=== PATIENT | female | born 1950 | race Caucasian/White ===

== ENCOUNTER 2024-01-03 04:07 | Emergency (ER) | payer MEDICARE, OTHER, SELFPAY ==
[2024-01-03 04:09] VITALS: BP 216/118
[2024-01-03 04:52] VITALS: BMI 31.5
[2024-01-03 05:00] VITALS: BP 131/69
[2024-01-03 05:30] VITALS: BP 108/61
--- NOTE | 2024-01-03 05:50 | ED.GENMED ---
History of Present Illness
General
Chief Complaint: Blood Pressure Problem
Source: patient
Exam Limitations: none
Time Seen by Provider: 01/03/24 05:50
History of Present Illness
History of Present Illness:
73-year-old female primarily here for hypertension. Diastolics were in the 1 10-1 15 range overnight. She took an extra 0.1 clonidine in the middle of the night. She currently has no symptoms. She awoke with some vague headache and heart
palpitations or pounding. No syncope no chest pain no shortness of breath no acute neurologic symptoms. Blood pressure has been an ongoing issue for a long time. She is followed by cardiology and nephrology at [facility]. She had a
pacemaker placed August 2022. There apparently was some lead issue that had to be revised at that time.
Past History
Past History
ED Past Medical History: HTN (takes Amlodipine)
ED Past Surgical History: Cardiac (Pacemaker) and Orthopedic
Social History
Personal: Single
Living: alone
Employment: Employed
Review of Systems
Review of Systems
All Other Systems: Not applicable
Respiratory: Reports no symptoms
Cardiac: Denies chest pain or syncope
Neurological: Denies dizzy, weakness or numbness
Phy Exam
Physical Exam
Physical Exam:
GENERAL: Alert and oriented in no apparent distress
EYE: Orbits normal.
NECK: Supple, no thyroid palpable
ENT: Pharynx without erythema
CARDIAC: Regular rate and rhythm without any obvious murmurs. Pacemaker left upper chest wall
LUNGS: Clear breath sounds,normal
ABDOMEN: Soft, without focal tenderness or distention
NEUROLOGICAL: Alert and oriented , grossly non-focal
SKIN: Warm and dry, no rash or lesion, no discoloration, skin intact.
MUSCULOSKELETAL: No edema,no deformity.Good color
PSYCH: Normal and appropriate interaction.
Course
Orders/Labs/Results
Orders:
Orders
01/03/24 04:21
Electrocardiogram (*1) Urgent
Reason for Study: Vertigo / Dizzy
EKG- Treatment ONCE
01/03/24 06:28
Basic Metabolic Panel Urgent
Complete Blood Count/With Diff Urgent
Abnormal Lab Results
01/03/24
06:28
MCH 32.3 H pg
(27.0-31.0)
MPV 11.0 H fL
(7.4-10.4)
Absolute Monos (auto) 0.8 H 10^3/uL
(0.1-0.6)
Lymphocytes % 15.0 L %
(20.5-51.1)
Chloride 108 H mmol/L
(98-107)
BUN 19 H mg/dl
(7-17)
Glucose 111 H mg/dl
(70-99)
01/03/24 06:28
01/03/24 06:28
Vital Signs
Initial and Last Documented VS:
Initial Vital Signs
Temp Pulse Resp BP Pulse Ox
98.1 F 92 24 216/118 98
01/03/24 04:09 01/03/24 04:09 01/03/24 04:09 01/03/24 04:09 01/03/24 04:09
Last Documented Vital Signs
Temp Pulse Resp BP Pulse Ox
98.1 F 84 20 119/65 94
01/03/24 04:09 01/03/24 06:00 01/03/24 06:00 01/03/24 07:00 01/03/24 07:01
MDM/Problems Addressed
Differential Diagnosis Includes:
Patient's blood pressures have been stable here. No indication for emergent blood pressure management. Cardiac exam and neurologic exam are within normal limits. EKG is stable. Paced. She is not describing a pacemaker issue. We will however
interrogate the pacemaker. Check basic labs for kidney function. If all stable at close outpatient follow-up. Would not make emergent changes to her blood pressure regimen at this time
*Pulse Oximetry
Patient hypoxic: no
*EKG
Interpreted by ED Provider?: Yes
Interpretation: abnormal
Comparison EKG: changes noted
Heart Rate: 70
Rate: normal
Rhythm: other
Worden: normal axis
Interval: normal interval
QRS Pattern: normal QRS
Ischemia: non-specific ST changes
*Critical Care Note
Total Time (30-74mins, 75-104mins- exclusive of procedures): Not Applicable
Update Note
Update Note:
Pacemaker interrogation within normal limits. Patient's blood pressure remained very stable. Asymptomatic. Discharged to follow-up
ED Attending Note
-
Portions of this chart may have been created with voice recognition software.� Occasional wrong word or��sound alike� substitutions may have occurred due to the inherent limitations of voice recognition software.
Discharge Plan
Departure
Patient Disposition: Home (Routine Discharge)
Date of Disposition: 01/03/24
Time of Disposition: 07:19
Patient with high blood pressure during this ER visit?: No
Discharge Problem:
Elevated blood pressure, Vague headache, Labile hypertension
Instructions: BLOOD PRESSURE
Prescriptions:
No Action
mupirocin 2 % Ointment
1 applic TOPICAL BID
aspirin 325 mg Tablet
325 mg PO DAILY Qty: 28 0RF
Rx Instructions:
Take daily x4 weeks for blood clot prevention.
lidocaine [Aspercreme (lidocaine)] 4 % Adhesive Patch,Medicated
2 patch topical DAILY Qty: 10 0RF
Rx Instructions:
Over the counter. Remove nightly.
Apply to sides of left knee. DO NOT place over incision.
docusate sodium 100 mg Capsule
100 mg PO BID Qty: 30 0RF
sennosides [senna] 8.6 mg Tablet
17.2 mg PO BID Qty: 30 0RF
acetaminophen [Acetaminophen Extra Strength] 500 mg tablet
1,000 mg PO Q6H Qty: 30 0RF
Rx Instructions:
DO NOT exceed >4000 mg daily
prednisone 10 mg tablet
30 mg PO TAPER Qty: 12 0RF
Rx Instructions:
3 tabs (30mg) x2 days, 2 tabs (20mg) x2 days, 1 tab (10mg) x2 days, then stop
oxycodone 5 mg tablet
5 mg PO Q6H PRN (Reason: moderate-severe pain) Qty: 30 0RF
Rx Instructions:
1 tab for moderate pain, 2 if severe.
Dx total joint. Ongoing therapy.
amlodipine 5 mg Tablet
5 mg PO HS Qty: 1 0RF
Rx Instructions:
Hold if systolic blood pressure <130 while on Oxycodone.
ibuprofen [Advil] 200 mg tablet
400 mg PO BID Qty: 30 0RF
Patient Comments:
patient last took about one month ago
Rx Instructions:
DO NOT restart until off Prednisone.
Take with food. Do not take within 2 hours of Aspirin.
pregabalin [Lyrica] 75 mg capsule
75 mg PO BID Qty: 15 0RF
Rx Instructions:
Take twice a day x5 days, then once daily x5 days, then STOP.
Referrals:
Russell Arora MD [Family Provider] - Tomorrow
Lionel Hickman MD [Active] - Next open appointment
Activity Restrictions/Additional Instructions:
Call your engine turner and spanish moss picker tomorrow for follow-up
Return with any unusual headache chest pain shortness of breath or any other concerning symptoms related to your blood pressure
Interventions
Interventions:
*Risk Screen - Suicide Last Done: 01/03/24 04:09
*General Assessment Last Done: 01/03/24 05:46
*Neglect/Abuse Screening Last Done: 01/03/24 04:09
ED- Fall Risk Assessment Last Done: 01/03/24 04:55
*ED COVID-19 Vaccine History Last Done: 01/03/24 05:46
ED- Cardiac Assessment Last Done: 01/03/24 04:55
ED- Neurological Assessment Last Done: 01/03/24 04:55
ED- Pulmonary Assessment Last Done: 01/03/24 04:55
Discharge Date and Time
Print Language: NEPALI
[2024-01-03 06:00] VITALS: BP 135/81
[2024-01-03 06:31] VITALS: BP 146/74
[2024-01-03 06:36] LABS: % Basophils 0.6 % (0-2); % Eosinophils 3.5 % (0-6); % Immature Granulocytes 0.2 % (0-0.5); % Monocytes 9.3 % (1.7-9.3); % Neutrophils 71.4 % (42.2-75.2); Absolute Basophils 0.1 10^3/uL (0-0.2); Absolute Eosinophils 0.3 10^3/uL (0-0.7); Absolute Lymphocytes 1.3 10^3/uL (1.2-3.4); Absolute Monocytes 0.8 10^3/uL (0.1-0.6); Hematocrit 41.6 % (37.0-47.0); Hemoglobin 14.2 g/dL (12.0-16.0); Mean Corp Hgb Conc. 34.1 g/dL (33.0-37.0); Mean Corpuscular Hgb 32.3 pg (27.0-31.0); Mean Corpuscular Volume 94.8 fL (81.0-99.0); Nucleated Red Blood Cells % 0 %; Platelet Count 194 10^3/uL (130-400); Red Blood Cell Count 4.39 10^6/uL (4.20-5.40); Red Cell Dist. Width 13.3 % (11.5-14.5); White Blood Cell Count 8.5 10^3/uL (4.8-10.8)
[2024-01-03 06:50] LABS: Blood Urea Nitrogen 19 mg/dl (7-17); Calcium 9.7 mg/dl (8.4-10.2); Carbon Dioxide 22 mmol/L (22-30); Chloride 108 mmol/L (98-107); Estimated Creatinine Clearance 84 ml/min; Glucose 111 mg/dl (70-99); Potassium 3.8 mmol/L (3.5-5.1); Sodium 143 mmol/L (135-145); eGFR > 60.00
[2024-01-03 07:00] VITALS: BP 119/65
== END 2024-01-03 07:33 | disposition home or self-care (01) ==
LOC: EMR 04:07
PROVIDERS: EMERGENCY PHYSICIAN Emergency Medicine; FAMILY PHYSICIAN Family Medicine
DX: R51.9 Headache, unspecified (principal); I10 Essential (primary) hypertension; Z95.0 Presence of cardiac pacemaker
CPT/HCPCS: 99284; 93288; 80048; 85025; 93005

== ENCOUNTER 2024-05-24 15:08 | Outpatient (RCR) | payer MEDICARE, OTHER, SELFPAY | END 2024-05-24 23:59 | disposition home or self-care (01) | LOC: RPT 15:08 | PROVIDERS: ATTENDING PHYSICIAN Family Medicine | DX: N81.2 Incomplete uterovaginal prolapse (principal); N32.81 Overactive bladder; N39.41 Urge incontinence; Z73.6 Limitation of activities due to disability | CPT/HCPCS: 97110; 97161; 97530 ==

== ENCOUNTER 2024-06-22 13:13 | Outpatient (RCR) | payer MEDICARE, OTHER, SELFPAY | END 2024-06-22 23:59 | disposition home or self-care (01) | LOC: RPT 13:13 | PROVIDERS: ATTENDING PHYSICIAN Family Medicine | DX: N81.2 Incomplete uterovaginal prolapse (principal); N32.81 Overactive bladder; N39.41 Urge incontinence; Z73.6 Limitation of activities due to disability | CPT/HCPCS: 97110; 97112; 97530 ==

== ENCOUNTER 2024-07-14 15:00 | Outpatient (RCR) | payer MEDICARE, OTHER, SELFPAY | END 2024-07-14 23:59 | disposition home or self-care (01) | LOC: RPT 15:00 | PROVIDERS: ATTENDING PHYSICIAN Family Medicine | DX: N81.2 Incomplete uterovaginal prolapse (principal); N32.81 Overactive bladder; N39.41 Urge incontinence; Z73.6 Limitation of activities due to disability | CPT/HCPCS: 97110; 97112; 97530 ==

== ENCOUNTER 2024-07-26 15:05 | Outpatient (RCR) | payer MEDICARE, OTHER, SELFPAY | END 2024-07-26 23:59 | disposition home or self-care (01) | LOC: RPT 15:05 | PROVIDERS: ATTENDING PHYSICIAN Internal Medicine Clinical Cardiac Electrophysiology; FAMILY PHYSICIAN Family Medicine | DX: M25.512 Pain in left shoulder (principal); M54.2 Cervicalgia; Z73.6 Limitation of activities due to disability | CPT/HCPCS: 97010; 97110; 97112; 97140; 97162 ==

== ENCOUNTER 2024-08-02 13:02 | Outpatient (RCR) | payer MEDICARE, OTHER, SELFPAY | END 2024-08-02 23:59 | disposition home or self-care (01) | LOC: RPT 13:02 | PROVIDERS: ATTENDING PHYSICIAN Internal Medicine Clinical Cardiac Electrophysiology; FAMILY PHYSICIAN Family Medicine | DX: M25.512 Pain in left shoulder (principal); M54.2 Cervicalgia; Z73.6 Limitation of activities due to disability | CPT/HCPCS: 97010; 97110; 97140 ==

== ENCOUNTER 2024-08-26 14:21 | Outpatient (RCR) | payer MEDICARE, OTHER, SELFPAY | END 2024-08-26 23:59 | disposition home or self-care (01) | LOC: RPT 14:21 | PROVIDERS: ATTENDING PHYSICIAN Family Medicine | DX: N81.2 Incomplete uterovaginal prolapse (principal); M25.512 Pain in left shoulder (principal); N32.81 Overactive bladder; M54.2 Cervicalgia; N39.41 Urge incontinence; R20.2 Paresthesia of skin; Z73.6 Limitation of activities due to disability | CPT/HCPCS: 97110; 97112 ==

== ENCOUNTER 2024-09-07 14:10 | Outpatient (RCR) | payer MEDICARE, OTHER, SELFPAY | END 2024-09-07 23:59 | disposition home or self-care (01) | LOC: RPT 14:10 | PROVIDERS: ATTENDING PHYSICIAN Internal Medicine Clinical Cardiac Electrophysiology; FAMILY PHYSICIAN Family Medicine | DX: M25.512 Pain in left shoulder (principal); M54.2 Cervicalgia; Z73.6 Limitation of activities due to disability | CPT/HCPCS: 97010; 97110 ==

== ENCOUNTER 2024-09-20 15:01 | Outpatient (RCR) | payer MEDICARE, OTHER, SELFPAY | END 2024-09-20 23:59 | disposition home or self-care (01) | LOC: RPT 15:01 | PROVIDERS: ATTENDING PHYSICIAN Family Medicine | DX: N81.2 Incomplete uterovaginal prolapse (principal); N32.81 Overactive bladder; N39.41 Urge incontinence; Z73.6 Limitation of activities due to disability; M25.512 Pain in left shoulder; M54.2 Cervicalgia; R20.2 Paresthesia of skin | CPT/HCPCS: 97110; 97112; 97140; 97530 ==

== ENCOUNTER 2024-10-13 13:09 | Outpatient (RCR) | payer MEDICARE, OTHER, SELFPAY | END 2024-10-13 23:59 | disposition home or self-care (01) | LOC: RPT 13:09 | PROVIDERS: ATTENDING PHYSICIAN Family Medicine | DX: N81.2 Incomplete uterovaginal prolapse (principal); N32.81 Overactive bladder; N39.41 Urge incontinence; Z73.6 Limitation of activities due to disability; M25.512 Pain in left shoulder; M54.2 Cervicalgia; R20.2 Paresthesia of skin | CPT/HCPCS: 97110; 97112; 97140; 97530 ==

== ENCOUNTER 2024-11-14 15:08 | Outpatient (RCR) | payer MEDICARE, OTHER, SELFPAY | END 2024-11-14 23:59 | disposition home or self-care (01) | LOC: RPT 15:08 | PROVIDERS: ATTENDING PHYSICIAN Family Medicine | DX: N81.2 Incomplete uterovaginal prolapse (principal); N32.81 Overactive bladder; N39.41 Urge incontinence; Z73.6 Limitation of activities due to disability; M25.512 Pain in left shoulder; M54.2 Cervicalgia; R20.2 Paresthesia of skin | CPT/HCPCS: 97110; 97112; 97140; 97530 ==

== ENCOUNTER 2024-12-22 12:04 | Outpatient (RCR) | payer MEDICARE, OTHER, SELFPAY | END 2024-12-22 23:59 | disposition home or self-care (01) | LOC: RPT 12:04 | PROVIDERS: ATTENDING PHYSICIAN Family Medicine | DX: N81.2 Incomplete uterovaginal prolapse (principal); N32.81 Overactive bladder; N39.41 Urge incontinence; Z73.6 Limitation of activities due to disability; M25.512 Pain in left shoulder; M54.2 Cervicalgia; R20.2 Paresthesia of skin | CPT/HCPCS: 97110; 97112; 97140; 97530 ==

== ENCOUNTER 2025-01-18 07:48 | Outpatient (RCR) | payer MEDICARE, OTHER, SELFPAY | END 2025-01-18 23:59 | disposition home or self-care (01) | LOC: RPT 07:48 | PROVIDERS: ATTENDING PHYSICIAN Family Medicine | DX: N81.2 Incomplete uterovaginal prolapse (principal); N32.81 Overactive bladder; N39.41 Urge incontinence; Z73.6 Limitation of activities due to disability; M25.512 Pain in left shoulder; M54.2 Cervicalgia; R20.2 Paresthesia of skin; M62.81 Muscle weakness (generalized) | CPT/HCPCS: 97110; 97112; 97140; 97530 ==

== ENCOUNTER 2025-02-02 13:22 | Outpatient (RCR) | payer MEDICARE, OTHER, SELFPAY | END 2025-02-02 23:59 | disposition home or self-care (01) | LOC: RPT 13:22 | PROVIDERS: ATTENDING PHYSICIAN Family Medicine | DX: N81.2 Incomplete uterovaginal prolapse (principal); N32.81 Overactive bladder; N39.41 Urge incontinence; Z73.6 Limitation of activities due to disability; M25.512 Pain in left shoulder; M54.2 Cervicalgia; R20.2 Paresthesia of skin; M62.81 Muscle weakness (generalized) | CPT/HCPCS: 97530 ==

== ENCOUNTER → 2025-02-17 12:54 | Outpatient (REF) | payer MEDICARE, OTHER, SELFPAY | LOC: HWRAD 12:54 | PROVIDERS: ATTENDING PHYSICIAN Urology; FAMILY PHYSICIAN Family Medicine | DX: N81.10 Cystocele, unspecified (principal); N39.41 Urge incontinence; R31.29 Other microscopic hematuria; M62.89 Other specified disorders of muscle; R10.20 Pelvic and perineal pain unspecified side | CPT/HCPCS: 76856; 76857 ==